=== PATIENT | female | born 1990 | race Two or more races ===

== ENCOUNTER 2019-10-11 19:09 | Emergency (ER) | payer OTHER ==
[2019-10-11 19:14] VITALS: BP 130/84; PULSE 69; TEMP 98.7; BMI 25.8
[2019-10-11] MEDS ORDERED: METOCLOPRAMIDE HCL INJECTION 10 MG/2 ML VIAL IVPUSH ONE (20:18)
[2019-10-11] MEDS ORDERED: SODIUM CHLORIDE 1,000 ML IV STA (20:18)
--- NOTE | 2019-10-11 20:18 | PDOC ---
History of Present Illness - General Chief Complaint: Headache Stated Complaint: HEADACHE Time Seen by Provider: 10/11/19 20:00 History Source: Patient Exam Limitations: No Limitations - History of Present Illness Initial Comments: 10/11/19 20:15 HISTORY OF PRESENT ILLNESS: 29-year-old woman with history of migraines who presents to the emergency department for evaluation of left-sided headache over 3 days. Patient reports the pain has slowly escalated despite taking Excedrin and Fioricet. Reports the pain is localized from her left eye extending over to the christianity and the periauricular area. She reports this is her usual migraine pattern. Patient is concerned that the Excedrin and Fioricet did not work as this is usually enough to relieve her acute symptoms. She reports having some nausea and had one episode of vomiting. She denies any blurry vision or dizziness. No recent travel or sick contacts. PAST MEDICAL HISTORY: See HPI SURGICAL HISTORY: Denies ALLERGIES: No known drug allergies REVIEW OF SYSTEMS General/Constitutional: Denies fever or chills. Denies weakness, weight change. HEENT: Denies change in vision. Denies ear pain or discharge. Denies sore throat. Cardiovascular: Denies chest pain or shortness of breath. Respiratory: Denies cough, wheezing, or hemoptysis. Gastrointestinal: Denies nausea, vomiting, diarrhea or constipation. Denies rectal bleeding. Genitourinary: Denies dysuria, frequency, or change in urination. Musculoskeletal: Denies joint or muscle swelling or pain. Denies neck or back pain. Skin and breasts: Denies rash or easy bruising. Neurologic: See HPI Psychiatric: Denies depression or anxiety. Endocrine: Denies increased thirst. Denies abnormal weight change. Hematologic/Lymphatic: Denies anemia, easy bleeding, or history of blood clots. Allergic/Immunologic: Denies hives or skin allergy. Denies latex allergy. PHYSICAL EXAM General Appearance: Well-appearing, appropriately dressed. No apparent distress , no intoxication. HEENT: EOMI, PERRLA, normal ENT inspection, normal voice, TMs normal, pharynx normal. No conjunctival pallor. No scleral icterus. Neck: Supple. Trachea midline. No tenderness, rigidity, carotid bruit, stridor , lymphadenopathy, or thyromegaly. Respiratory/Chest: Lungs CTAB. No shortness of breath, chest tenderness, respiratory distress, accessory muscle use. No crackles, rales, rhonchi, stridor , wheezing, dullness Cardiovascular: RRR. S1, S2. No JVD, murmur, bradycardia, tachycardia. 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 Fully oriented, alert. Appropriate mood/affect. Motor strength 5/5. No appreciable EOM palsy, facial droop or sensory deficit. Photophobia present. Gait is steady. Finger-nose testing is within normal limits. Past History - Past Medical History Allergies/Adverse Reactions: Allergies Allergy/AdvReac Type Severity Reaction Status Date / Time No Known Allergies Allergy Verified 10/11/19 19:14 Home Medications: Ambulatory Orders Ibuprofen [Motrin -] 600 mg PO TID PRN 11/27/15 Acetaminophen/Caffeine/Butalb [Fioricet -] 1 tab PO Q4H #20 tablet 11/28/15 Anemia: Yes COPD: No Other medical history: migrains - Psycho Social/Smoking Cessation Hx Smoking History: Never smoked Have you smoked in the past 12 months: No Substance Use Type: None *Physical Exam - Vital Signs Last Vital Signs Temp Pulse Resp BP Pulse Ox 98.7 F 69 18 130/84 100 10/11/19 19:12 10/11/19 19:12 10/11/19 19:12 10/11/19 19:12 10/11/19 19:12 Medical Decision Making - Medical Decision Making 10/11/19 20:17 A/P: 29-year-old woman with left-sided headache for 3 days Most likely migraine as this is consistent with the patient's usual migraine pattern. normal saline IV bolus Reglan 10 mg IV push Benadryl 12.5 mg IV push Urinalysis, urine culture, urine I will defer imaging at this time as patient has no focal neurologic findings and headache is consistent with her usual migraine pattern. Reassess 10/11/19 21:53 Patient reports her pain is currently 5/10 down from 9/10 on arrival. Patient reports this is a tolerable level for her pain she is requesting discharge at this time. Patient is no longer experiencing any photophobia. Toradol 30 mg IV now Discharge home I discussed the physical exam findings, ancillary test results and final diagnoses with the patient. I answered all of the patient's questions. The patient was satisfied with the care received and felt comfortable with the discharge plan and treatment plan. The patient will call their primary care physician within 24 hours to arrange follow-up and will return to the Emergency Department with any new, persistent or worsening symptoms. Discharge - Discharge Information Problems reviewed: Yes Clinical Impression/Diagnosis: Migraine Qualifiers: Migraine type: hemiplegic Status migrainosus presence: without status migrainosus Intractability: not intractable Qualified Code(s): G43.409 - Hemiplegic migraine, not intractable, without status migrainosus Disposition: HOME - Admission No - Follow up/Referral - Patient Discharge Instructions Additional Instructions: Take Tylenol or Motrin as needed for headaches. Keep a diary of all food to eat and activities performed prior to headaches starting. Make an appointment with your neurologist for reevaluation within the next week. Return to emergency department for worsening headache, blurry vision, dizziness , nausea, vomiting or any other concerns. Thank you very much for for choosing us to provide emergent health care needs. - Post Discharge Activity
[2019-10-11 21:37] LABS: URINE APPEARANCE CLEAR; URINE BILIRUBIN NEGATIVE (NEGATIVE); URINE COLOR YELLOW; URINE GLUCOSE (UA) NEGATIVE (NEGATIVE); URINE KETONE NEGATIVE (NEGATIVE); URINE LEUK ESTERASE NEGATIVE (NEGATIVE); URINE NITRITE NEGATIVE (NEGATIVE); URINE PROTEIN NEGATIVE (NEGATIVE); URINE UROBILINOGEN 0.2 mg/dL (0.2-1.0)
[2019-10-11] MEDS ORDERED: KETOROLAC TROMETHAMINE 30 MG/1 ML VIAL IVPUSH ONE (21:40)
== END 2019-10-11 23:16 | disposition home or self-care (01) ==
LOC: JER 19:09
PROC: 3E0333Z Introduction of Anti-inflammatory into Peripheral Vein, Percutaneous Approach (ICD-10-PCS; principal; 2019-10-11)
PROC: 3E033GC Introduction of Other Therapeutic Substance into Peripheral Vein, Percutaneous Approach (ICD-10-PCS; 2019-10-11)
PROC: 3E033GC Introduction of Other Therapeutic Substance into Peripheral Vein, Percutaneous Approach (ICD-10-PCS; 2019-10-11)
DX: G43.409 Hemiplegic migraine, not intractable, without status migrainosus (principal)
CPT/HCPCS: 81003; 84703; 87086; 99282-25; J7030

== ENCOUNTER 2022-01-04 13:00 | Emergency (ER) | payer OTHER ==
[2022-01-04 13:05] VITALS: BMI 25.8
[2022-01-04] MEDS ORDERED: SODIUM CHLORIDE 0.9% 500 ML INFUS.BAG IV ONE (13:46)
[2022-01-04] MEDS ORDERED: ACETAMINOPHEN 1000 MG/100 ML BAG IVPB ONE (13:46)
[2022-01-04] MEDS ORDERED: ONDANSETRON 4 MG/2 ML VIAL IVPUSH ONE (13:46)
[2022-01-04] MEDS ORDERED: ONDANSETRON 4 MG/2 ML VIAL ONE (14:00)
[2022-01-04 14:10] LABS: BASO % 0.3 % (0-2.0); EOS % 0.1 % (0-4.5); HEMATOCRIT 36.5 % (32.4-45.2); HEMOGLOBIN 12.2 GM/dL (10.7-15.3); LYMPH % 5.8 % (8-40); MCH 28.6 pg (25.7-33.7); MCHC 33.5 g/dl (32.0-36.0); MEAN CELL VOLUME 85.4 fl (80-96); MEAN PLT VOLUME 8.4 fl (7.5-11.1); NEUT % 87.8 % (42.8-82.8); PLATELET COUNT 292 10^3/uL (134-434); RBC 4.27 M/mm3 (3.60-5.2); WHITE BLOOD COUNT 6.6 K/mm3 (4.0-10.0)
[2022-01-04 14:29] LABS: CALCIUM 9.4 mg/dL (8.5-10.1)
[2022-01-04 14:30] LABS: ALBUMIN 3.9 g/dl (3.4-5.0); BLOOD UREA NITROGEN 11.1 mg/dL (7-18)
[2022-01-04 14:33] LABS: CREATININE 0.7 mg/dL (0.55-1.3)
[2022-01-04 14:34] LABS: BILIRUBIN,TOTAL 0.4 mg/dL (0.2-1); TOT PROT 7.8 g/dl (6.4-8.2); URINE APPEARANCE CLEAR; URINE BILIRUBIN NEGATIVE (NEGATIVE); URINE COLOR YELLOW; URINE GLUCOSE (UA) NEGATIVE (NEGATIVE); URINE KETONE 1+ (NEGATIVE); URINE LEUK ESTERASE NEGATIVE (NEGATIVE); URINE NITRITE NEGATIVE (NEGATIVE); URINE PROTEIN NEGATIVE (NEGATIVE); URINE UROBILINOGEN 0.2 mg/dL (0.2-1.0)
[2022-01-04 14:43] LABS: HCG,QUALITATIVE URINE NEGATIVE
[2022-01-04 16:19] VITALS: BP 108/65; PULSE 95; TEMP 97.9
== END 2022-01-04 17:01 | disposition home or self-care (01) ==
LOC: JER 13:00
PROC: 3E0333Z Introduction of Anti-inflammatory into Peripheral Vein, Percutaneous Approach (ICD-10-PCS; principal; 2022-01-04)
PROC: 3E033GC Introduction of Other Therapeutic Substance into Peripheral Vein, Percutaneous Approach (ICD-10-PCS; 2022-01-04)
DX: R50.9 Fever, unspecified (principal); R11.2 Nausea with vomiting, unspecified; R19.7 Diarrhea, unspecified
CPT/HCPCS: 36415; 80053; 81003; 84703; 85025; 87086; 99284-25

== ENCOUNTER 2022-05-20 04:23 | Emergency (ER) | payer OTHER ==
[2022-05-20 05:18] VITALS: BP 128/72; PULSE 98; TEMP 99.9; BMI 25.8
== END 2022-05-20 06:17 | disposition home or self-care (01) ==
LOC: JER 04:23
DX: U07.1 COVID-19 (principal)
CPT/HCPCS: 0241U-QW; 87651; 99283-25

== ENCOUNTER 2024-01-13 07:26 | Emergency (ER) | payer OTHER ==
[2024-01-13 08:10] VITALS: BP 118/72; PULSE 87; RESP 16; TEMP 98.5; BMI 30.4
[2024-01-13] MEDS ORDERED: KETOROLAC TROMETHAMINE 30 MG/1 ML VIAL ONE (08:35)
[2024-01-13] MEDS: KETOROLAC TROMETHAMINE 30 MG/1 ML VIAL IM ONE (08:39)
== END 2024-01-13 10:23 | disposition home or self-care (01) ==
LOC: JER 07:26
PROC: 3E0233Z Introduction of Anti-inflammatory into Muscle, Percutaneous Approach (ICD-10-PCS; principal; 2024-01-13)
DX: H66.93 Otitis media, unspecified, bilateral (principal); H92.03 Otalgia, bilateral
CPT/HCPCS: 99284-25